=== PATIENT | male | born 1995 | race Caucasian/White ===

== ENCOUNTER 2016-12-31 12:39 | Emergency (ER) | payer OTHER ==
[~2016-12-31] VITALS: Ht 175.3 cm; Wt 65.0 kg
[2016-12-31] MEDS ORDERED: KETOROLAC 60MG/2ML VIAL IM ONE (13:15)
[2016-12-31] MEDS ORDERED: LORAZEPAM 0.5MG TABLET PO ONE (13:15)
[2016-12-31 13:23] VITALS: BP 128/70
== END 2016-12-31 15:12 | disposition home or self-care (01) ==
LOC: ER 12:40
DX: M54.9 Dorsalgia, unspecified (principal); G89.29 Other chronic pain; F41.9 Anxiety disorder, unspecified
CPT/HCPCS: 96372; 99284; J1885